=== PATIENT | male | born 1960 | race African-American/Black ===

== ENCOUNTER 2016-09-04 18:13 | Emergency (ER) | payer SELFPAY ==
[~2016-09-04] VITALS: Ht 177.8 cm; Wt 74.8 kg
[2016-09-04] MEDS ORDERED: NKM (18:24)
[2016-09-04] MEDS ORDERED: IBUPROFEN600 MG ORAL (18:38)
[2016-09-04] MEDS ORDERED: NORCO 5-325 TA1 EAC1 ORAL (18:38)
[2016-09-04 18:42] VITALS: BP 144/82
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
[2016-09-04 19:21] VITALS: BP 144/82
--- NOTE | 2016-09-05 09:47 | Diagnostic Imaging Report ---
Indication: Right hand injury Technique: Right hand 3 views Comparison: None Findings: There is an acute angulated fracture of the fifth metacarpal head/neck. Soft tissue swelling is noted. Bone mineralization is normal. Impression: Acute angulated fracture of the fifth metacarpal head/neck.
== END 2016-09-04 19:22 | disposition home or self-care (01) ==
LOC: EMR 18:43
DX: S62.396A Other fracture of fifth metacarpal bone, right hand, initial encounter for closed fracture (principal); S60.221A Contusion of right hand, initial encounter; Y04.0XXA Assault by unarmed brawl or fight, initial encounter; Y92.9 Unspecified place or not applicable; Y99.8 Other external cause status
CPT/HCPCS: 99284